=== PATIENT | female | born 1985 ===

== ENCOUNTER 2021-08-21 00:15 | Emergency (ER) | payer SELFPAY ==
--- NOTE | 2021-08-21 01:00 | NUR ---
Patient was called to be triaged but was not present in the waiting room or outside of ER.
--- NOTE | 2021-08-21 01:20 | NUR ---
Patient was called to be triaged but was not present in the waiting room or outside of ER. Dr Braun placed a call to patient's cellphone and patient answered and stated "I am coming now."
--- NOTE | 2021-08-21 01:45 | NUR ---
Patient has not returned to be triaged. PATIENT WAS NOT TRIAGED OR SEEN BY [facility].
== END 2021-08-21 02:10 | disposition left against medical advice (07) ==
LOC: ER 00:20
DX: Z53.21 Procedure and treatment not carried out due to patient leaving prior to being seen by health care provider (principal)